=== PATIENT | female | born 1955 | race Caucasian/White ===

== ENCOUNTER → 2017-01-31 | Outpatient (CLI) | payer OTHER | LOC: FIMAGING 08:47 | DX: Z12.31 Encounter for screening mammogram for malignant neoplasm of breast (principal) | CPT/HCPCS: G0202 ==

== ENCOUNTER 2017-11-16 10:45 | Emergency (ER) | payer OTHER ==
[2017-11-16 10:50] VITALS: RESP 20
[2017-11-16] MEDS ORDERED: OXYCODONE/APAP 5/325 TAB PO ONE (10:57)
--- NOTE | 2017-11-16 10:57 | EDPHY ---
H & P Stated Complaint: fall, left elbow injury Time Seen by Provider: 11/16/17 10:53 HPI/ROS: HPI: This 62-year-old female presents with Chief Complaint: Left elbow injury Location: left elbow Quality: Injury Duration: 1 hr prior to arrival Signs and Symptoms: No bleeding, no radiation, no numbness, no weakness, no tingling, no LOC, + decreased range of motion, + swelling, + pain Timing: Sudden Severity: 06/26 Context: Patient is right-hand dominant, walking her small dog, when her toe got caught on the ice and she slipped. She reports that as she was falling backwards, she turned to her left side and avoided hitting her head or injuring her neck. She landed directly on her left elbow feeling immediate, constant, severe pain that worsened with movement. Denies paresthesias/skin color changes /LOC/head injury/headache/neck injury. She applied ice and took 2 ibuprofen prior to driving to the emergency room for evaluation. Patient is generally healthy and does not take any regular medications. Modifying Factors: See above Comment: ROS: see HPI Constitutional: No fever, no chills, no weight loss Eyes: No blurred vision Respiratory: No shortness of breath, no cough Cardiovascular: No chest pain Gastrointestinal: No nausea, no vomiting no diarrhea Genitourinary: No dysuria Extremities: No myalgias Neurologic: No weakness, no numbness Skin: No rashes Hematologic: No bruising, no bleeding MEDICAL/SURGICAL/SOCIAL HISTORY: Medical history: Generally healthy. Does not take any regular medications. Surgical history: right hip replacement hysterectomy 2006 Social history: . CONSTITUTIONAL: Physically fit adult white female, awake and alert, no obvious distress HEENT: Atraumatic and normocephalic, PERRL, EOMI. Tympanic membranes clear. Oropharynx clear, no exudate and moist pink mucosa. Airway patent. No lymphadenopathy. No meningismus. Cardiovascular: Normal S1/S2, regular rate, regular rhythm, without murmur rub or gallop. PULMONARY/CHEST: Symmetrical and nontender. Clear to auscultation bilaterally. Good air movement. No accessory muscle usage. ABDOMEN: Soft, nondistended, nontender, no rebound, no guarding, no peritoneal signs, no masses or organomegaly. No CVAT. EXTREMITIES: 2/2 radial pulses, left forearm extension strength 4/5, left ELBOW : Full extension to 80, flexion to 90, moderate tenderness over medial epicondyle, moderate tenderness over lateral epicondyle, no effusion. no deformities, no clubbing, no cyanosis or edema. NEUROLOGICAL: no focal neuro deficits. GCS 15. SKIN: Warm and dry, no erythema. no rash. Good capillary refill. Source: Patient Exam Limitations: No limitations - Personal History Current Tetanus/Diphtheria Vaccine: Yes Current Tetanus Diphtheria and Acellular Pertussis (TDAP): Yes Tetanus Vaccine Date: < 10 years - Medical/Surgical History Hx Asthma: No Hx Chronic Respiratory Disease: No Hx Diabetes: No Hx Cardiac Disease: No Hx Renal Disease: No Hx Cirrhosis: No Hx Alcoholism: No Hx HIV/AIDS: No Hx Splenectomy or Spleen Trauma: No Other PMH: right hip replacement. hysterectomy 2006 - Social History Smoking Status: Never smoked Constitutional: Initial Vital Signs Temperature (C) 36.7 C 11/16/17 10:48 Heart Rate 87 11/16/17 10:48 Respiratory Rate 20 11/16/17 10:48 Blood Pressure 137/87 H 11/16/17 10:48 O2 Sat (%) 100 11/16/17 10:48 O2 Delivery Mode Room Air Allergies/Adverse Reactions: cefoxitin Allergy (Verified 11/16/17 10:47) Home Medications: Medication Instructions Recorded oxyCODONE/APAP 5/325 [Percocet 1 - 2 tab PO Q6H PRN #20 tab 11/16/17 5/325 (*)] Medical Decision Making - Diagnostics Imaging Results: Imaging Impressions Elbow X-Ray 11/16/17 10:54 Impression: Unstable intra-articular olecranon fracture. ED Course/Re-evaluation: Left elbow x-ray ordered Patient given Percocet x1 with adequate pain relief No signs of neurovascular compromise/tenting of skin/compartment syndrome/ extremities and joints examined above and below area of concern and are neurovascularly intact. X-ray my read shows displaced oblique fracture through the olecranon; Immobilized with long-arm posterior splint with elbow in flexion and forearm neutral 1120: ED is soon to consult for admission, spoke with Orthopedics, Dr. Quintero, who recommends long arm posterior splint; pain control; patient is to call the office on Friday for appointment same day and schedule surgery on Friday. Reassessed patient; pain controlled. This patient was seen under the supervision of my secondary supervising physician. I evaluated care for this patient independently. Discussed this patient with Dr. Preciado who did not see the patient. Differential Diagnosis: Differential diagnosis includes but is not limited to radial fracture, ulnar fracture, olecranon fracture, distal humerus fracture, ulnar nerve injury, ligament injury, epicondylitis. - Data Points Medications Given: Discontinued Medications Oxycodone/Acetaminophen (Percocet 5/325) 1 tab PO EDNOW ONE Stop: 11/16/17 10:58 Last Admin: 11/16/17 11:05 Dose: 1 tab Departure - Departure Disposition: Home, Routine, Self-Care Clinical Impression: Closed fracture of left olecranon process Qualifiers: Encounter type: initial encounter Qualified Code(s): S52.022A - Displaced fracture of olecranon process without intraarticular extension of left ulna, initial encounter for closed fracture Condition: Good Instructions: Open Reduction and Internal Fixation of an Elbow Fracture in Children (ED), Elbow Fracture (ED) Additional Instructions: Keep the splint dry and in place until seen by Orthopedics. Take Ibuprofen 600 mg every 8 hours with food as needed for pain. Apply ice for 30 minutes at a time; 2-3 times per day for the next 1-2 days. Take Percocet 1-2 tabs every 6 hr as needed for severe/breakthrough pain. Call Orthopedics, Dr. Quintero, Friday first thing for appointment time on Friday. Plan is to have surgery sometime next week. Referrals: Edgar Quintero MD [Medical Doctor] - As per Instructions Prescriptions: oxyCODONE/APAP 5/325 [Percocet 5/325 (*)] 1 - 2 tab PO Q6H PRN #20 tab PRN Reason: Pain, Severe
[2017-11-16 12:53] VITALS: BP 130/97; PULSE 72; TEMP 98.2; O2SAT 93
== END 2017-11-16 12:53 | disposition home or self-care (01) ==
DX: S52.022A Displaced fracture of olecranon process without intraarticular extension of left ulna, initial encounter for closed fracture (principal); W00.0XXA Fall on same level due to ice and snow, initial encounter
CPT/HCPCS: A4565

== ENCOUNTER 2017-11-21 07:08 | Day surgery (SDC) | payer OTHER ==
[~2017-11-21 07:08] MED LIST: VANCOMYCIN PHARMACY TO DOSE MISC ONE
[2017-11-21] MEDS ORDERED: VANCOMYCIN PHARMACY TO DOSE MISC ONE (07:35)
[2017-11-21] MEDS ORDERED: LR 1,000 ML IV ONE (07:37)
[2017-11-21] MEDS ORDERED: LIDOCAINE 1% 2 ML INJ ID PRN (07:37)
[2017-11-21] MEDS ORDERED: BUPIVACAINE/EPI 0.5% 30 ML SDV ONE (07:42)
[2017-11-21] MEDS ORDERED: BUPIVACAINE 0.5% 30 ML SDV ONE (07:45)
[2017-11-21] MEDS ORDERED: VANCOMYCIN HCL/NORMAL SALINE 250 ML IV ONE (08:00)
--- NOTE | 2017-11-21 10:43 | PDHPUP ---
History & Physical Update H&P update statement: This history and physical update is based on an assessment of the patient which was completed after admission or registration (within 24 hours), but prior to the surgery/procedure. H&P update: H&P reviewed & patient examined, no change in patient's condition since H&P completed
[2017-11-21] MEDS ORDERED: MIDAZOLAM 2 MG/2 ML VIAL ONE (10:59)
[2017-11-21] MEDS ORDERED: MIDAZOLAM 2 MG/2 ML VIAL IVP ONE (11:00)
--- NOTE | 2017-11-21 11:02 | PDANEPAE ---
ANE History of Present Illness left olecranon fracure ANE Past Medical History - Cardiovascular History Hx Hypertension: No Hx Arrhythmias: No Hx Chest Pain: No Hx Coronary Artery / Peripheral Vascular Disease: No Hx CHF / Valvular Disease: No Hx Palpitations: No - Pulmonary History Hx COPD: No Hx Asthma/Reactive Airway Disease: No Hx Recent Upper Respiratory Infection: No Hx Oxygen in Use at Home: No Hx Sleep Apnea: No Sleep Apnea Screening Result - Last Documented: Negative - Neurologic History Hx Cerebrovascular Accident: No Hx Seizures: No Hx Dementia: No - Endocrine History Hx Diabetes: No - Renal History Hx Renal Disorders: No - Liver History Hx Hepatic Disorders: No - Neurological & Psychiatric Hx Hx Neurological and Psychiatric Disorders: No - Cancer History Hx Cancer: No Cancer History Comment: mother of ovarian CA - Congenital Disorder History Hx Congenital Disorders: No - GI History Hx Gastrointestinal Disorders: No - Chronic Pain History Chronic Pain: No - Surgical History Prior Surgeries: 03/2013 R hip replacement. 2006 oopherectomy. cyst removal from uterus 1994. bunionectomy 1994. breast cyst removal 1984 ANE Review of Systems Review of Systems: - Exercise capacity METS (RN): 6 METS ANE Patient History - Allergies Allergies/Adverse Reactions: cefoxitin Allergy (Verified 11/16/17 10:47) - Home Medications Home Medications: Acyclovir 400 mg PO 11/21/17 [Last Taken 3 Months Ago ~08/21/17] - NPO status NPO Status: no food or drink >8 hours NPO Since - Liquids (Date): 11/21/17 NPO Since - Liquids (Time): 05:15 NPO Since - Solids (Date): 11/20/17 NPO Since - Solids (Time): 20:00 - Smoking Hx Smoking Status: Former smoker - Family Anes Hx Family Hx Anesthesia Complications: NA ANE Labs/Vital Signs - Vital Signs Vital Signs: reviewed preoperatively; see RN documention for details Blood Pressure: 140/84 Heart Rate: 69 Respiratory Rate: 15 O2 Sat (%): 97 Height: 165.1 cm Weight: 56.699 kg ANE Physical Exam - Airway Neck exam: FROM Mallampati Score: Class 2 Mouth exam: normal dental/mouth exam - Pulmonary Pulmonary: no respiratory distress - Cardiovascular Cardiovascular: regular rate and rhythym - ASA Status ASA Status: I ANE Anesthesia Plan Anesthesia Plan: GA w LMA Regional Anesthesia: supraclavicular BP NB
[2017-11-21] MEDS ORDERED: ROPIVACAINE HCL 150 MG/30 ML INJ ONE (11:05)
[2017-11-21] MEDS ORDERED: DEXAMETHASONE 4 MG/ML VIAL ONE (11:05)
[2017-11-21] MEDS ORDERED: ONDANSETRON 4 MG/2 ML VIAL ONE (11:05)
[2017-11-21] MEDS ORDERED: fentaNYL 100 MCG/2 ML INJ ONE ×3 (11:05→13:32)
[2017-11-21] MEDS ORDERED: PROPOFOL/EMULSION 500 MG/50 ML BOTTLE IV ONE (11:06)
[2017-11-21] MEDS ORDERED: PROMETHAZINE HCL 25 MG/ML INJ IVP PRN ×2 (11:51→13:19)
[2017-11-21] MEDS ORDERED: OXYCODONE/APAP 5/325 TAB PO PRN ×2 (11:51→13:19)
[2017-11-21] MEDS ORDERED: HYDROmorphONE/DILAUDID 1 MG/ML INJ IVP PRN ×2 (11:51→13:19)
[2017-11-21] MEDS ORDERED: ONDANSETRON 4 MG/2 ML VIAL IVP PRN ×2 (11:51→13:19)
[2017-11-21] MEDS ORDERED: fentaNYL 100 MCG/2 ML INJ IVP PRN ×2 (11:51→13:19)
[2017-11-21] MEDS ORDERED: NALOXONE HCL 0.4 MG/ML INJ IVP PRN ×2 (11:51→13:19)
[2017-11-21] MEDS ORDERED: MEPERIDINE 25 MG/ML SYR IVP PRN (13:19)
--- NOTE | 2017-11-21 13:20 | POSTANESTH ---
Post Anesthetic Evaluation Cardiovascular Status: Normal, Stable Respiratory Status: Normal, Stable Level of Consciousness/Mental Status: Can Participate in Eval Pain Control: Adequate, Prn Tx Ordered Nausea/Vomiting Control: Adequate, Prn Tx Ordered Complications Possibly Related to Anesthesia: None Noted
[2017-11-21] MEDS ORDERED: HYDROmorphONE/DILAUDID 1 MG/ML INJ ONE (13:32)
[2017-11-21 13:56] VITALS: TEMP 97.2
[2017-11-21 14:30] VITALS: BP 119/81; O2SAT 95
[2017-11-21] MEDS ORDERED: OXYCODONE/APAP 5/325 TAB ONE (14:48)
[2017-11-21 15:07] VITALS: PULSE 66; RESP 16
--- NOTE | 2017-11-24 14:32 | GOP ---
[f rep st] OPERATIVE REPORT DATE OF OPERATION: 11/21/2017 SURGEON: Edgar Quintero MD ANESTHESIA: Block with sedation. PREOPERATIVE DIAGNOSIS: Left olecranon fracture. POSTOPERATIVE DIAGNOSIS: Left olecranon fracture. PROCEDURE PERFORMED: Left olecranon open reduction, internal fixation. FINDINGS: INDICATIONS: The patient was seen in my clinic last week after a fall onto her elbow several days prior. X-rays were done in the urgent care and reviewed by me. The x-rays showed a long oblique type olecranon fracture. On the oblique view there was more than 3 mm of displacement of the fracture with slightly over 2 mm of displacement of the articular surface. ORIF was indicated for this amount of displacement. I presented the options to the patient including casting and surgical fixation. The benefits of surgical fixation include faster return of function, and she would not have to immobilized for a long period of time. We discussed the risks and benefits of surgery, the risks including pain, bleeding, infection, damage to surrounding structures, malunion, nonunion, delayed union, elbow stiffness, posttraumatic arthritis, nerve injury, and need for further surgeries including implant removal. She understood the risks and wished to proceed. DESCRIPTION OF PROCEDURE: The patient was seen in preoperative holding area. Consents were signed after she was given the opportunity to ask any questions, and all of her questions were answered. Surgical site was marked. The patient was then taken to the operative suite. Care was taken to transfer the patient to the operating table. General anesthesia was given by the anesthesia team. A supraclavicular block was performed. A time-out was called including surgical and anesthesia teams confirming the surgical site and procedure to be performed. Then 2 g of Ancef were given prior to incision. After sedation was given, the patient was very carefully placed in the lateral decubitus position with the left side up. Great care was taken to place an axillary roll. Great care was taken to ensure that all bony prominences were padded. The arm was placed on a foam bump. The left upper extremity was prepped and draped in the usual sterile fashion. Sterile tourniquet was placed and an Esmarch was used to exsanguinate the left upper extremity. The tourniquet was inflated to 250 mmHg. A curvilinear posterior incision was used. Standard posterior approach was utilized, incising the skin carefully down to the level of the periosteum. The subcutaneous border of the ulna and the triceps was visualized, and then a split between the extensor and flexor muscles of the subcutaneous border was utilized. The periosteum was carefully cleaned off of the fracture site. A clamp was then used to open the fracture site and it was cleaned. All the clots were removed. This was a long oblique type pattern amenable to lag screw. Two 3.5 lag screws were placed lateral to medial in the standard fashion. Great care was taken to ensure that the position of the screws were far posterior from the ulnar nerve. The ulnar nerve was palpated and protected throughout the case. The lag screws held a great reduction. At this point a plate was chosen. The plate was was then placed in a standard fashion using fluoroscopy to check direction and screw length. Cortical screw was placed in the shaft. A pocket was made in the tricep in order to bring the plate as close to the olecranon tip as possible. Once this was completed, final x-rays were taken. We were very happy with our reduction. The wound was irrigated copiously with sterile saline. The triceps was closed with #1 Vicryl. The fascial layer was closed over the plate as much as possible to cover the plate up. A 2-0 Vicryl and 2-0 Monocryl was then used for the subcutaneous layers, and running 3 -0 nylon for the skin. Sterile dressing was applied. Tourniquet was let down. Hand was well perfused. IMPLANTS USED: Synthes 2.7/3.5 variable angle olecranon plating system. POSTOPERATIVE PLAN: The patient will follow up with me in 14 days. She is to follow up with our hand therapist next week. . /[id number]/MODL MTDD
== END 2017-11-21 15:07 | disposition home or self-care (01) ==
LOC: FSGY 07:08
PROVIDERS: ATTEND Orthopaedic Surgery Hand Surgery
PROC: 0RSM04Z Reposition Left Elbow Joint with Internal Fixation Device, Open Approach (ICD-10-PCS; principal; 2017-11-21 09:30)
DX: S52.022A Displaced fracture of olecranon process without intraarticular extension of left ulna, initial encounter for closed fracture (principal); W00.0XXA Fall on same level due to ice and snow, initial encounter; Z96.641 Presence of right artificial hip joint
CPT/HCPCS: C1713; J1100; J1170; J2250; J2405; J2704; J2795; J3010; J3370

== ENCOUNTER → 2017-12-05 | Outpatient (CLI) | payer OTHER | LOC: BMCIMAGING 09:58 | PROVIDERS: ATTEND Orthopaedic Surgery Hand Surgery | DX: S52.022D Displaced fracture of olecranon process without intraarticular extension of left ulna, subsequent encounter for closed fracture with routine healing (principal) ==

== ENCOUNTER → 2018-01-12 | Outpatient (CLI) | payer OTHER | LOC: BMCIMAGING 14:35 | PROVIDERS: ATTEND Orthopaedic Surgery Hand Surgery | DX: S52.022D Displaced fracture of olecranon process without intraarticular extension of left ulna, subsequent encounter for closed fracture with routine healing (principal) ==

== ENCOUNTER → 2018-02-23 | Outpatient (CLI) | payer OTHER | LOC: FIMAGING 14:51 | PROVIDERS: ATTEND Internal Medicine | DX: Z12.31 Encounter for screening mammogram for malignant neoplasm of breast (principal) ==

== ENCOUNTER → 2018-07-24 | Outpatient (CLI) | payer OTHER | LOC: BMCIMAGING 14:15 | PROVIDERS: ATTEND Orthopaedic Surgery Hand Surgery | DX: S52.022D Displaced fracture of olecranon process without intraarticular extension of left ulna, subsequent encounter for closed fracture with routine healing (principal) ==

== ENCOUNTER → 2019-03-09 | Outpatient (CLI) | payer OTHER | LOC: FIMAGING 10:14 | PROVIDERS: ATTEND Internal Medicine | DX: Z12.31 Encounter for screening mammogram for malignant neoplasm of breast (principal) ==